=== PATIENT | male | born 1940 | race Caucasian/White ===

== ENCOUNTER 2017-03-16 13:06 | Outpatient (RCR) | payer MEDICARE | END 2017-03-21 16:00 | disposition home or self-care (01) | LOC: WOUNDCARE 13:06 | PROVIDERS: ATTEND Nurse Practitioner | DX: E10.622 Type 1 diabetes mellitus with other skin ulcer (principal); L97.321 Non-pressure chronic ulcer of left ankle limited to breakdown of skin; L97.211 Non-pressure chronic ulcer of right calf limited to breakdown of skin; I48.2 Chronic atrial fibrillation | CPT/HCPCS: 11042; 87070; 87075; 87077; 87186; 87205; 97597 ==

== ENCOUNTER → 2017-03-29 | Day surgery (SDC) | payer MEDICARE ==
[~2017-03-29] VITALS: Ht 172.7 cm; Wt 95.3 kg
[~2017-03-29] MED LIST: AMIO200T50 PO; ATOR80TA76 PO; CARV6.252 PO; CLOP75TA69 PO; CLOPIDOGREL 300 MG (PLAVIX) TABLET PO ONE; DILT180C PO; GABA600T2 PO; HEParin (CATH LAB) 2,000 ML IV ONE; INSU100I29 SQ; INSU100V3 SQ; LISI-552 PO; NS IV 1000 ML 1,000 ML IV SCH; NS IV 1000 ML 1,000 ML ONE; OXYC-201 PO; PANT40TA3 PO; POTA-51 PO; WARF3TAB6 PO
[2017-03-29 12:40] VITALS: BP 171/89
[2017-03-29 12:51] LABS: MEAN PLATELET VOLUME 10.6 FL (7.4-10.4); RED BLOOD COUNT 4.89 10^6/uL (4.35-5.85); RED CELL DISTRIBUTION WIDTH 17.5 % (10.0-14.5); WHITE BLOOD COUNT 8.4 10^3/uL (4.3-11.0)
[2017-03-29 12:54] LABS: INR 2.3 (0.8-1.4); PROTHROMBIN TIME PATIENT 25.2 SEC (12.2-14.7)
[2017-03-29 13:02] LABS: ALANINE AMINOTRANSFERASE 53 U/L (0-55); ALBUMIN 3.6 GM/DL (3.2-4.5); ANION GAP 8 MMOL/L (5-14); ASPARTATE AMINO TRANSFERASE 41 U/L (5-34); BLOOD UREA NITROGEN 19 MG/DL (7-18); BUN/CREATININE RATIO 23; CARBON DIOXIDE 27 MMOL/L (21-32); CHLORIDE 105 MMOL/L (98-107); CREATININE SERUM 0.82 MG/DL (0.60-1.30); GFR ESTIMATED > 60; GLUCOSE 167 MG/DL (70-105); POTASSIUM 3.7 MMOL/L (3.6-5.0); SODIUM 140 MMOL/L (135-145); TOTAL PROTEIN 6.5 GM/DL (6.4-8.2)
== END ==
LOC: CATH 12:05
PROVIDERS: ATTEND Internal Medicine Interventional Cardiology
DX: I73.9 Peripheral vascular disease, unspecified (principal); Z79.899 Other long term (current) drug therapy; Z79.01 Long term (current) use of anticoagulants; Z79.4 Long term (current) use of insulin; Z53.09 Procedure and treatment not carried out because of other contraindication
CPT/HCPCS: 36415; 80053; 85027; 85610; 85730; 87081

== ENCOUNTER → 2017-03-29 | Outpatient (CLI) | payer MEDICARE ==
[~2017-03-29] MED LIST changes: -CLOPIDOGREL 300 MG (PLAVIX) TABLET PO ONE; -HEParin (CATH LAB) 2,000 ML IV ONE; -NS IV 1000 ML 1,000 ML IV SCH; -NS IV 1000 ML 1,000 ML ONE
== END ==
LOC: WOUNDCARE 10:46
PROVIDERS: ATTEND Nurse Practitioner
DX: E11.622 Type 2 diabetes mellitus with other skin ulcer (principal); L97.322 Non-pressure chronic ulcer of left ankle with fat layer exposed; L97.212 Non-pressure chronic ulcer of right calf with fat layer exposed; I70.243 Atherosclerosis of native arteries of left leg with ulceration of ankle; I87.2 Venous insufficiency (chronic) (peripheral); I48.2 Chronic atrial fibrillation
CPT/HCPCS: 11042

== ENCOUNTER 2017-03-31 07:10 | Day surgery (SDC) | payer MEDICARE ==
[2017-03-31] VITALS (11 sets, daily range): BP systolic 122–168; BP diastolic 74–105
[~2017-03-31] VITALS: Ht 172.7 cm; Wt 94.8 kg
[~2017-03-31 07:10] MED LIST changes: -CLOP75TA69 PO
[2017-03-31] MEDS ORDERED: NS IV 1000 ML 1,000 ML ONE (07:11)
[2017-03-31] MEDS ORDERED: HEParin (CATH LAB) 2,000 ML IV ONE (07:11)
[2017-03-31] MEDS: NS IV 1000 ML 1,000 ML IV SCH ×2 (07:39→07:53)
[2017-03-31] MEDS ORDERED: CLOPIDOGREL 75 MG (PLAVIX) TABLET ONE (07:42)
[2017-03-31] MEDS ORDERED: CLOP75TA69 PO (07:52)
[2017-03-31 07:54] LABS: INR 1.7 (0.8-1.4); PROTHROMBIN TIME PATIENT 19.6 SEC (12.2-14.7)
[2017-03-31] MEDS ORDERED: fentaNYL INJECTION 100 MCG/2 ML AMP ONE ×3 (08:07→14:07)
[2017-03-31] MEDS ORDERED: MIDAZOLAM 5 MG/5 ML (VERSED) VIAL ONE (08:07)
[2017-03-31] MEDS ORDERED: diphenhydrAMINE 50 MG/ML INJ (BENADRYL) ONE (08:07)
[2017-03-31] MEDS ORDERED: HEParin 1000 UNIT/ML (10ML VIAL) FOR BOLUS ONE (09:59)
[2017-03-31] MEDS ORDERED: LABETALOL HCL 20 MG/4 ML VIAL ONE (11:02)
[2017-03-31] MEDS ORDERED: MIDAZOLAM 2 MG/2 ML (VERSED) VIAL ONE ×2 (12:56→14:09)
--- NOTE | 2017-03-31 14:30 | Cardiac Procedure Note-CS/ASA ---
Pre-Procedure Note Pre-Op Procedure Note H&P Reviewed The H&P was reviewed, patient examined and no changes noted. Date H&P Reviewed: Mar 31, 2017 Time H&P Reviewed: 09:00 Conscious Sedation Pre-Proced Time Reviewed: 09:00 ASA Class: 3 Airway Mallampati Classification: (te-moak appropriate class) I. II. III, IV Lungs Heart ASA score ASA 1: a normal healthy patient ASA 2: a patient with a mild systemic disease (mid diabetes, controlled hypertension, obesity ASA 3: a patient with a severe systemic disease that limits activity (angina , COPD, prior Myocardial infarction) ASA 4: a patient with an incapacitating disease that is a constant threat to life (CHF, renal failure) ASA 5: a moribund patient not expected to survive 24 hrs. (ruptured aneurysm) ASA 6: a declared brain patient whose organs are being harvested. For emergent operations, add the letter E after the classification Grade 1 Sedation Plan: Analgesia, Amnesia, Plan communicated to team members, Discussed options with patient/fam, Discussed risks with patient/fam Note The patient is an appropriate candidate to undergo the planned procedure, sedation, and anesthesia. The patient immediately re-assessed prior to indication. Karlene LEONARD MD Mar 31, 2017 2:30 pm
--- NOTE | 2017-03-31 14:36 | Cardiology Post Procedure Note ---
Post-Procedure Note Physician (s)/Licensed Home Inspector (s) Physician Karlene LEONARD MD Pre-Procedure Diagnosis Pre-Procedure Diagnosis: critical limb ischemia Post-Procedure Note Procedure Start Date: Mar 31, 2017 Procedure Start Time: 10:00 Name of Procedure: distal abdominal aortogram, bilateral lower extremity, stent to left SFA and popliteal artery, DCB to distal SFA Findings/Procedure Note Left lower extremity: Left SFA - heavily calcified and severe distal disease. Left Popliteal - heavily calcified, occluded. reconstitution of Deep peroneal artery. occluded proximal PT with reconstitution in mid calf. occluded mid AT with reconstitution. WEIGHT CALCULATOR - left popliteal and distal SFA DCB - distal SFA Stent x2 - popliteal and distal SFA Anesthesia Type: Conscious Sedation Estimated blood loss (mL): 30 Contrast Amount: 221 Post-Procedure Diagnosis Post-operative diagnosis: Critical limb ischemia, with stent and drug coated balloon to left distal SFA and popliteal artery. Karlene LEONARD MD Mar 31, 2017 2:36 pm
[2017-03-31] MEDS ORDERED: NS IV 1000 ML 1,000 ML IV SCH (14:37)
[2017-03-31] MEDS ORDERED: PATIENT MAY USE OWN MEDS, ALL PO SCH (14:45)
[2017-03-31] MEDS: morphine INJ 4 MG/ML 1 ML (VIAL/SYRINGE) IVP PRN ×2 (16:25→19:50)
[2017-03-31] MEDS ORDERED: ATROPINE INJECTION 1 MG/10 ML SYR (ABBOTT) ONE (19:06)
[2017-03-31] MEDS ORDERED: ATORVASTATIN 80 MG (LIPITOR) TABLET PO SCH (21:00)
[2017-03-31] MEDS ORDERED: inSUlin DETERMIR 1 UNIT/0.01 ML (LEVEMIR) CHARGE PER UNIT SQ SCH (21:00)
[2017-03-31] MEDS: inSUlin (REGULAR) HUMAN 1 UNIT/0.01 ML (CHARGE PER UNIT) SC SCH (21:24)
[2017-03-31] MEDS: oxyCODONE/APAP 7.5-325 MG (PERCOCET 7.5) TABLET PO PRN (21:37)
[2017-03-31] MEDS: lisINopril 20 MG (ZESTRIL) TAB PO SCH (21:37)
[2017-03-31] MEDS: AMIODARONE 200 MG (CORDARONE) TAB PO SCH (21:37)
[2017-03-31] MEDS: CARVEDILOL 6.25 MG (COREG) TAB PO SCH (21:37)
[2017-03-31] MEDS: GABAPENTIN 600 MG (NEURONTIN) TAB PO SCH (21:37)
[2017-03-31] MEDS: KCL 20 MEQ TAB (K-DUR) PO SCH (21:38)
[2017-04-01] VITALS (13 sets, daily range): BP systolic 111–145; BP diastolic 65–90
[2017-04-01] MEDS ORDERED: HEParin DRIP 25000 UNIT/500ML 500 ML IV SCH ×2 (02:33→02:50)
[2017-04-01 04:02] LABS: BASOPHILS % (AUTO) 0 % (0-10); EOSINOPHILS % (AUTO) 1 % (0-10); LYMPHOCYTES # (AUTO) 0.7 X 10^3 (1.0-4.0); LYMPHOCYTES % (AUTO) 9 % (12-44); MEAN CORPUSCULAR HEMOGLOBIN 25 PG (25-34); MEAN CORPUSCULAR HGB CONC 32 G/DL (32-36); MEAN CORPUSCULAR VOLUME 80 FL (80-99); MONOCYTES # (AUTO) 0.8 X 10^3 (0.0-1.0); MONOCYTES % (AUTO) 9 % (0-12); NEUTROPHILS # (AUTO) 6.4 X 10^3 (1.8-7.8); NEUTROPHILS % (AUTO) 81 % (42-75); PLATELET COUNT 174 10^3/uL (130-400); RED BLOOD COUNT 4.53 10^6/uL (4.35-5.85); RED CELL DISTRIBUTION WIDTH 17.3 % (10.0-14.5)
[2017-04-01 04:26] LABS: ALANINE AMINOTRANSFERASE 47 U/L (0-55); ALBUMIN 3.1 GM/DL (3.2-4.5); ANION GAP 11 MMOL/L (5-14); ASPARTATE AMINO TRANSFERASE 36 U/L (5-34); BILIRUBIN,TOTAL 1.4 MG/DL (0.1-1.0); BLOOD UREA NITROGEN 17 MG/DL (7-18); BUN/CREATININE RATIO 22; CALCIUM 8.6 MG/DL (8.5-10.1); CARBON DIOXIDE 25 MMOL/L (21-32); CHLORIDE 107 MMOL/L (98-107); CREATININE SERUM 0.77 MG/DL (0.60-1.30); GFR ESTIMATED > 60; GLUCOSE 140 MG/DL (70-105); POTASSIUM 3.4 MMOL/L (3.6-5.0); SODIUM 143 MMOL/L (135-145); TOTAL PROTEIN 5.6 GM/DL (6.4-8.2)
[2017-04-01] MEDS ORDERED: MAGNESIUM 1 GM/100 ML IVPB 100 ML IV SCH (06:00)
[2017-04-01] MEDS ORDERED: POTASSIUM CL 10MEQ/50ML IVPB 50 ML IV SCH (06:00)
[2017-04-01] MEDS ORDERED: KCL 20 MEQ TAB (K-DUR) PO SCH (06:00)
[2017-04-01] MEDS: NS IV 1000 ML 1,000 ML IV SCH (06:14)
[2017-04-01] MEDS ORDERED: KCL 20 MEQ TAB (K-DUR) PO ONE (06:15)
[2017-04-01] MEDS: inSUlin (REGULAR) HUMAN 1 UNIT/0.01 ML (CHARGE PER UNIT) SC SCH ×2 (06:41→11:00)
[2017-04-01] MEDS ORDERED: CLOPIDOGREL 75 MG (PLAVIX) TABLET PO SCH (09:00)
[2017-04-01] MEDS ORDERED: DILTIAZEM 180 MG (CARDIZEM CD) CAP PO SCH (09:00)
[2017-04-01] MEDS ORDERED: PANTOPRAZOLE 40 MG (PROTONIX) TAB PO SCH (09:00)
[2017-04-01] MEDS: GABAPENTIN 600 MG (NEURONTIN) TAB PO SCH (09:32)
[2017-04-01] MEDS: KCL 20 MEQ TAB (K-DUR) PO SCH (09:32)
[2017-04-01] MEDS: oxyCODONE/APAP 7.5-325 MG (PERCOCET 7.5) TABLET PO PRN (09:32)
[2017-04-01] MEDS: AMIODARONE 200 MG (CORDARONE) TAB PO SCH (09:33)
[2017-04-01] MEDS: lisINopril 20 MG (ZESTRIL) TAB PO SCH (09:33)
[2017-04-01] MEDS: CARVEDILOL 6.25 MG (COREG) TAB PO SCH (09:33)
--- NOTE | 2017-04-01 12:03 | Clinic Account Progress/Dx ---
Clinic Account Progress/Dx DIAGNOSIS: Date Seen by Provider: Apr 01, 2017 Time Seen by Provider: 12:03 Diagnosis critical limb ischemia Nonhealing foot ulcer Peripheral arterial disease Hypertension Hyperlipidemia Chronic atrial fibrillation LEXX BAZAN MD Apr 01, 2017 12:03
--- NOTE | 2017-04-01 12:03 | Cardiology Progress Note ---
Subjective Date Seen by Provider: Apr 01, 2017 Time Seen by Provider: 12:01 Subjective/Events-last exam patient is laying down in bed, feeling better in his leg, still having dressing over the ulcers in his feet. Review of Systems General: No Chills, No Night Sweats, No Fatigue, No Malaise, No Appetite, No Other HEENT: No Head Aches, No Visual Changes, No Eye Pain, No Ear Pain, No Dysphasia , No Sinus Congestion, No Post Nasal Drip, No Sore Throat, No Other Pulmonary: No Dyspnea, No Cough, No Pleuritic Chest Pain, No Other Cardiovascular: No: Chest Pain, Edema, Lt Headedness, Orthopnea, Other, Palpitations, Paroxysmal Noc. Dyspnea Objective-Cardiology Exam Last Set of Vital Signs Vital Signs 03/31/17 04/01/17 04/01/17 23:00 00:00 08:00 Temp 98.3 Pulse 71 Resp 16 B/P (MAP) 122/65 Pulse Ox 95 O2 Delivery Room Air O2 Flow Rate 5.00 Capillary Refill : Less Than 3 Seconds I&O Intake and Output 04/01/17 00:00 Intake Total 240 ml Output Total 775 ml Balance -535 ml Intake Oral 240 ml Output Urine Total 775 ml # Urine Diapers 2 General: Alert, Oriented X3, Cooperative HEENT: Atraumatic, PERRLA Neck: Supple, No JVD, No Thyromegaly Lungs: Clear to Auscultation, Normal Air Movement Heart: Regular Rate, Normal S1, Normal S2, No Murmurs Abdomen: Normal Bowel Sounds, Soft, No Tenderness, No Hepatosplenomegaly, No Masses Extremities: Other (diminished pulse with ulcers on the feet, dressing, unable to palpate dorsalis pedis pulse) Neuro: Normal Speech, Normal Tone Psych/Mental Status: Mental Status NL Results Lab Laboratory Tests 04/01/17 03:39 A/P-Cardiology Admission Diagnosis critical limb ischemia Nonhealing foot ulcer Peripheral arterial disease Hypertension Hyperlipidemia Chronic atrial fibrillation Assessment/Plan Critical limb ischemia status post complex intervention done by Dr. Bruno, continue on current medication and discharged homechronic atrial fibrillation, maintained on Cardizem and beta blockers and Coumadin. Hypertension, continue current medication monitor Hyperlipidemia, continue on statin Nonhealing foot ulcer. Managed by Dr. Spencer Peripheral arterial disease LEXX BAZAN MD Apr 01, 2017 12:03
[2017-04-01] MEDS ORDERED: OXYC-201 PO (12:05)
--- NOTE | 2017-04-04 08:46 | CARDIAC CATHETERIZATION ---
PROCEDURE PHYSICIAN: SILVESTRE LEONARD DATE OF PROCEDURE: 03/31/2017 PERIPHERAL ANGIOGRAPHY AND INTERVENTION REPORT: REFERRING PHYSICIAN: Dr. Martinez/Dr. Steward. INDICATION: Critical limb ischemia. PREOPERATIVE DIAGNOSIS: Bilateral critical limb ischemia. POSTOPERATIVE DIAGNOSIS: 1. Critical limb ischemia. 2. Stent and drug coated balloon to left distal SFA and popliteal artery. HISTORY: Mr. Lopez is a 76-year-old gentleman who was referred by the wound clinic. He presents with nonhealing ulcers on bilateral lower extremities as well as resting discomfort. NEEL showed severe bilateral abnormality. According to the patient, his left lower extremity was slightly worse than the right lower extremity; therefore, we decided to gain access via the right femoral artery and after diagnostic angiography, proceed with intervention to the left lower extremity. Consent was taken. PROCEDURE PERFORMED: 1. Distal abdominal aortogram with bilateral lower extremity runoff. 2. Selective angiogram of the left lower extremity including the external iliac artery, common femoral artery, superficial femoral artery, popliteal artery and runoff below the knee. 3. Selective angiography, right lower extremity via the sheath. 4. RADIOTELEPHONE OPERATOR/balloon of the left popliteal artery. 5. RADIOTELEPHONE OPERATOR/stent left distal SFA. SPECIMENS: None. ANTICOAGULATION: Heparin. COMPLICATIONS: None. ESTIMATED BLOOD LOSS: 30 mL CONTRAST: 221 mL of Omnipaque. FLUOROSCOPY TIME: 86.2 minutes. FLUOROSCOPY DOSE: 1116 mGy PROCEDURE DETAILS: The patient was brought to the [facility] after informed consent was taken. He was draped and prepped in the usual sterile fashion. Access was gained in the right femoral artery with a 6-Afghan sheath. Diagnostic angiography was performed with a pigtail catheter. FINDINGS: 1. Right lower extremity: There is mild distal abdominal aortic disease. Very mild disease in the right common iliac artery. Patent but very tortuous external iliac artery. Mild disease in the proximal superficial femoral artery. Mild disease in the midsegment. Severe calcified disease in the distal SFA and the popliteal artery. Total occlusion of the right popliteal artery with faint reconstitution just distally. There is a faint reconstitution of the deep peroneal artery, which is occluded in its proximal segment. The deep peroneal artery however supplies the foot. Diffusely diseased and multiple occlusive segments of the posterior tibial artery. Proximal segment of the anterior tibial artery is occluded as well with reconstitution in the midsegment and then supplies to the foot. Therefore on the right lower extremity, there is 2 vessel runoff to the foot, the posterior tibial is occluded. Both the deep peroneal artery and the anterior tibial artery have severe proximal occlusion. 2. Left lower extremity: Mild common iliac artery disease tortuous vessels, no significant external iliac disease. Calcified mild diffuse disease in the proximal SFA and mid SFA. Heavily calcified distal SFA and popliteal artery with severe disease in the distal SFA. Occluded popliteal artery just after the Angel canal with faint reconstitution in the tibial peroneal artery. The posterior tibial artery reconstitutes in the mid calf with occlusion in the entire proximal and midsegment. The deep peroneal artery reconstitutes from the tibial peroneal trunk and supplies the foot. The anterior tibial artery also has severe occlusive disease and was not visible at this point in time. RECOMMENDATION: Intervention to the distal SFA and left distal SFA and popliteal artery is recommended. INTERVENTION DETAILS: We first crossed over with the pigtail catheter and a Storq wire into the left common external iliac artery. The wire was placed there and the pigtail catheter was taken out. Then we took a long 6-Afghan by 55cm flexor sheath and with difficulty, put it in the distal left common iliac artery. We were not able to get the sheath any further due to significant tortuosity in both the right and left common iliac artery and hostile bifurcation. We then took a 100 cm straight tapered glide catheter with a 0.018 connect flex wire, we were able to get into the distal vessel. We then took the taper glide catheter out and put a mini support catheter. Through the long sheath, we did a selective angiogram of the left lower extremity. This showed also severe calcification in the entire length of the common femoral and superficial femoral artery and significant disease in the distal SFA and occlusion of the popliteal artery was noted. Due to significant tortuosity we were not able to manipulate guidewire as well as guidewire; therefore, we upgraded to a 7-Afghan x 65 Terumo destination sheath but still with no significant improvement in our procedure. Therefore, we took the Terumo destination out put a short 7-Afghan sheath. Using the 7-Afghan sheath, selective angiography of the right lower extremity was performed, which showed severely diffuse calcification in the mid and distal SFA. Severe disease was noted in the right distal SFA and occlusion of the popliteal artery, diffuse disease in the DP. At this point in time, we decided to get antegrade access in the left artery with a 6-Afghan sheath. We put in a 6-Afghan x 11 sheath in the right femoral artery. We then took the mini support catheter 0.014 wire and were able to cross the occlusion into the tibioperoneal trunk. We then took an Huxford 14, 1.5 x 20 x 150 balloon and did numerous balloon dilatations in the popliteal artery with some recanalization but poor distal flow. We then exchanged the short 6-Afghan sheath in the left femoral artery with a 6-Afghan x 23 long sheath. We then used the mini support catheter and were able to cross with a 0.014 wire. We used at least 3 0.018 connect flex wires as well during this long procedure. Once we were able to cross and recannulize with the 014 command wire in the distal peroneal artery, we then took an Huxford 3 x 60 x 150 balloon and did a balloon inflations in the popliteal and distal superficial femoral artery with some improvement in flow. We then took an Huxford 18, 5.5 x 200 x 150 balloon and did balloon inflations in the popliteal and distal superficial artery. These inflations were performed for 60 to 90 seconds in nominal and super nominal pressures. We then took Supera 5.5 x 120 mm stent and placed it in the distal popliteal artery until the proximal popliteal artery. This was done because nonflow limiting dissection was noted. We then used a Lutonix 6 x 150 x 130 drug coated balloon and did an inflation in the distal left SFA with good results. We then took a Supera 6.5 x 150 stent and placed it in the proximal popliteal artery and the distal SFA with good results. Therefore recanalization and reasonable flow was noted in the SFA and popliteal artery; however, still less than optimum flow was noted in the vessels below the knee with mild nonflow limiting dissection. However, there was still flow in the deep peroneal artery as well as the anterior tibial artery. This was not seen before we started. Therefore, there was some improvement in flow during the procedure. At this point in time, we decided to stop. The wire was taken out and angiogram showed good flow in the SFA and popliteal artery; however, there was still less than optimum flow below the knee; however, there was still flow in the deep peroneal artery as well as the anterior tibial artery. The posterior tibia was occluded with some reconstitution in the midcalf. The patient tolerated the procedure well and did not have any complication. IMPRESSION/CONCLUSION: 1. The patient will be admitted to the ICU overnight. The patient will be started on all home medication except Coumadin which will be started tomorrow. The sheaths will be pulled in the ICU once ACT is below 150. The patient will be started on aspirin and Plavix. 2. CBC and BMP will be done in the morning. Hopefully the patient will be discharged tomorrow. Job ID: [id number] Dictated Date: 03/31/2017 15:27:49 Power Shear Operator Date: 04/04/2017 08:02:10 / clarisse SHORT
== END 2017-04-01 13:00 | disposition home or self-care (01) ==
LOC: CATH 07:10 → ICU 14:50 → CATH 04-01 13:00
PROVIDERS: ATTEND Internal Medicine Interventional Cardiology
DX: I70.213 Atherosclerosis of native arteries of extremities with intermittent claudication, bilateral legs (principal); I70.92 Chronic total occlusion of artery of the extremities; E11.621 Type 2 diabetes mellitus with foot ulcer; I48.2 Chronic atrial fibrillation; I10 Essential (primary) hypertension; L97.909 Non-pressure chronic ulcer of unspecified part of unspecified lower leg with unspecified severity; E78.5 Hyperlipidemia, unspecified; Z79.4 Long term (current) use of insulin; Z79.899 Other long term (current) drug therapy; Z79.01 Long term (current) use of anticoagulants
CPT/HCPCS: 36247; 36415; 37226; 75630; 75716; 75774; 80053; 82962; 85025; 85347; 85610; 85730

== ENCOUNTER 2017-04-10 20:25 | Emergency (ER) | payer MEDICARE ==
[~2017-04-10] VITALS: Ht 172.7 cm; Wt 95.3 kg
[~2017-04-10 20:25] MED LIST changes: +CLOP75TA69 PO
[2017-04-10] MEDS ORDERED: fentaNYL INJECTION 100 MCG/2 ML AMP IVP STA ×2 (20:39→23:37)
[2017-04-10 20:48] LABS: BASOPHILS # (AUTO) 0.1 10^3/uL (0.0-0.1); BASOPHILS % (AUTO) 1 % (0-10); EOSINOPHILS # (AUTO) 0.1 10^3/uL (0.0-0.3); EOSINOPHILS % (AUTO) 1 % (0-10); LYMPHOCYTES % (AUTO) 10 % (12-44); MEAN CORPUSCULAR HEMOGLOBIN 26 PG (25-34); MEAN CORPUSCULAR HGB CONC 32 G/DL (32-36); MEAN CORPUSCULAR VOLUME 81 FL (80-99); MEAN PLATELET VOLUME 9.4 FL (7.4-10.4); MONOCYTES # (AUTO) 0.9 X 10^3 (0.0-1.0); MONOCYTES % (AUTO) 9 % (0-12); NEUTROPHILS # (AUTO) 8.2 X 10^3 (1.8-7.8); NEUTROPHILS % (AUTO) 80 % (42-75); PLATELET COUNT 348 10^3/uL (130-400); RED BLOOD COUNT 4.86 10^6/uL (4.35-5.85); WHITE BLOOD COUNT 10.4 10^3/uL (4.3-11.0)
--- NOTE | 2017-04-10 20:48 | ED Lower Extremity ---
General Stated Complaint: LEG PAIN Source: patient, spouse Exam Limitations: no limitations History of Present Illness Time seen by provider: 20:34 Initial Comments Patient presents to ER by private conveyance with his with chief complaint of left lower leg pain started approximately one day ago progressively getting worse and not responding to Percocet. Last dose Percocet approximately 2 hours ago. He underwent a stent for peripheral arterial disease in that left leg by Dr. Bruno 03/31/17 and the warfarin was stopped at that time corn the patient and not restarted. He does have a history of fibrillation. He was put on Plavix and aspirin however. He has had a triple bypass years ago and that's when he was found to have atrial fibrillation was started on the warfarin. He is feeling pain in the back of his left calf and cannot straighten his leg out. Patient has a history of diabetes and has a diabetic ulcer on the medial malleoli are surface of his left leg that is under care of local wound care team. Allergies and Home Medications Allergies Coded Allergies: No Known Drug Allergies (Unverified , 03/29/17) Home Medications Atorvastatin Calcium 80 Mg Tablet, 80 MG PO HS, (Reported) Carvedilol 6.25 Mg Tablet, 6.25 MG PO BID, (Reported) Clopidogrel Bisulfate 75 Mg Tablet, 75 MG PO DAILY, (Reported) Diltiazem HCl 180 Mg Cap.er.24h, 180 MG PO DAILY, (Reported) Gabapentin 600 Mg Tablet, 600 MG PO TID, (Reported) Insulin Detemir 100 Unit/1 Ml Insuln.pen, 50 UNIT SQ HS, (Reported) Insulin Regular, Human 1,000 Units/10 Ml Soln, SQ SLIDING/SCALE, (Reported) Lisinopril 20 Mg Tablet, 20 MG PO BID, (Reported) Oxycodone HCl/Acetaminophen 1 Each Tablet, 1 TAB PO Q4H PRN for PAIN-MODERATE, # 30 Ref 0 Prescribed by: LEXX BAZAN on 04/01/17 1205 Pantoprazole Sodium 40 Mg Tablet.dr, 40 MG PO DAILY, (Reported) Potassium Chloride 20 Meq Tablet.er, 20 MEQ PO TID, (Reported) Warfarin Sodium 3 Mg Tablet, 3 MG PO Th@HS, (Reported) Warfarin Sodium 3 Mg Tablet, 1.5 MG PO SuMoTuWeFrSa@HS, (Reported) TAKES 1/2 OF A (3 MG) TABLET Constitutional: No chills, No diaphoresis, No fever EENTM: No ear pain, No eye pain Respiratory: No cough, No dyspnea on exertion, No hemoptysis, No phlegm, No short of breath, No wheezing Cardiovascular: see HPI, No chest pain, No edema, Hx of Intervention, No palpitations, vascular heart diseas Gastrointestinal: No abdominal pain, No constipation, No diarrhea, No nausea, No vomiting Genitourinary: No discharge, No dysuria Musculoskeletal: No joint pain, No joint swelling, No muscle pain Skin: No pruritus, No rash Psychiatric/Neurological: Denies Headache, Denies Numbness, Denies Paresthesia Past Qilerfl-Inuorm-Zhsbke Hx Patient Social History Alcohol Use: Denies Use Recreational Drug Use: No Smoking Status: Former Smoker Type Used: Cigars Recent Foreign Travel: No Contact w/Someone Who Travel: No Immunizations Up To Date Date of Pneumonia Vaccine: May 29, 2016 Surgeries HX Surgeries: Yes Respiratory Hx Respiratory Disorders: No Cardiovascular Hx Cardiac Disorders: Yes Genitourinary Hx Genitourinary Disorders: No Gastrointestinal Hx Gastrointestinal Disorders: Yes (colon cancer ) Cancer Cancer: Colon Physical Exam Vital Signs Vital Sign - Last 12Hours 04/10/17 20:31 Temp 98.1 Pulse 95 Resp 20 B/P (MAP) 107/76 Pulse Ox 97 O2 Delivery Room Air Capillary Refill : General Appearance: WD/WN, mild distress HEENT: PERRL/EOMI, pharynx normal Neck: supple, normal inspection Cardiovascular: no edema, no murmur, irregularly irregular, other (legs are warm from the calf down but dusky colored with barely perceptible dorsal pedal and posterior tibial pulses.) Respiratory: lungs clear, normal breath sounds, no respiratory distress Gastrointestinal: non tender, soft Legs: bilateral leg other (left side has tenderness in the body to palpation on the calf posteriorly. Homans sign positive.) Feet: bilateral foot other (healing wound left medial malleoli without erythema , drainage and a small half centimeter diameter eschar.) Neurologic/Tendon: normal sensation, normal motor functions, normal tendon functions, responds to pain Neurologic/Psychiatric: no motor/sensory deficits, alert, oriented x 3 Skin: warm/dry, other (calves and feet are discolored dusky purple) Progress/Results/Core Measures Results/Orders Lab Results Laboratory Tests Test 04/10/17 20:40 Range/Units White Blood Count 10.4 4.3-11.0 10^3/uL Red Blood Count 4.86 4.35-5.85 10^6/uL Hemoglobin 12.5 L 13.3-17.7 G/DL Hematocrit 39 L 40-54 % Mean Corpuscular Volume 81 80-99 FL Mean Corpuscular Hemoglobin 26 25-34 PG Mean Corpuscular Hemoglobin Concent 32 32-36 G/DL Red Cell Distribution Width 17.0 H 10.0-14.5 % Platelet Count 348 130-400 10^3/uL Mean Platelet Volume 9.4 7.4-10.4 FL Neutrophils (%) (Auto) 80 H 42-75 % Lymphocytes (%) (Auto) 10 L 12-44 % Monocytes (%) (Auto) 9 0-12 % Eosinophils (%) (Auto) 1 0-10 % Basophils (%) (Auto) 1 0-10 % Neutrophils # (Auto) 8.2 H 1.8-7.8 X 10^3 Lymphocytes # (Auto) 1.0 1.0-4.0 X 10^3 Monocytes # (Auto) 0.9 0.0-1.0 X 10^3 Eosinophils # (Auto) 0.1 0.0-0.3 10^3/uL Basophils # (Auto) 0.1 0.0-0.1 10^3/uL Prothrombin Time 13.0 12.2-14.7 SEC INR Comment 1.0 0.8-1.4 Activated Partial Thromboplast Time 26 24-35 SEC Sodium Level 140 135-145 MMOL/L Potassium Level 3.7 3.6-5.0 MMOL/L Chloride Level 103 98-107 MMOL/L Carbon Dioxide Level 24 21-32 MMOL/L Anion Gap 13 5-14 MMOL/L Blood Urea Nitrogen 21 H 7-18 MG/DL Creatinine 0.96 0.60-1.30 MG/DL Estimat Glomerular Filtration Rate > 60 BUN/Creatinine Ratio 22 Glucose Level 110 H 70-105 MG/DL Calcium Level 9.0 8.5-10.1 MG/DL Magnesium Level 1.6 L 1.8-2.4 MG/DL Total Bilirubin 1.2 H 0.1-1.0 MG/DL Aspartate Amino Transf (AST/SGOT) 80 H 5-34 U/L Alanine Aminotransferase (ALT/SGPT) 50 0-55 U/L Alkaline Phosphatase 107 40-136 U/L Total Protein 6.5 6.4-8.2 GM/DL Albumin 3.4 3.2-4.5 GM/DL My Orders Orders - ZOYA BATISTA Cbc With Automated Diff (04/10/17 20:39) Comprehensive Metabolic Panel (04/10/17 20:39) Magnesium (04/10/17 20:39) Protime With Inr (04/10/17 20:39) Partial Thromboplastin Time (04/10/17 20:39) Us Venous Lower Ext Lt (04/10/17 20:39) Saline Lock/Iv-Start (04/10/17 20:39) Monitor-Rhythm Ecg Trace Only (04/10/17 20:39) Fentanyl Injection (Sublimaze Injection (04/10/17 20:39) Magnesium Oxide Tablet (Mag Ox Tablet) (04/10/17 21:30) Ct Angio Ext Lower Left W (04/10/17 21:38) Iohexol Injection (Omnipaque 350 Mg/Ml 1 (04/10/17 22:45) Ns (Ivpb) (Sodium Chloride 0.9% Ivpb Bag (04/10/17 22:45) Heparin Drip 61174 Unit/500ml (Heparin (04/10/17 23:25) Heparin (Bolus Per Protocol) (Heparin (B (04/10/17 23:30) Fentanyl Injection (Sublimaze Injection (04/10/17 23:30) Medications Given in ED Current Medications Medications Dose Ordered Sig/Donell Route Start Time Stop Time Status Last Admin Dose Admin Iohexol 150 ml ONCE ONCE IV 04/10/17 22:45 04/10/17 22:46 DC 04/10/17 22:45 125 ML Magnesium Oxide 400 mg ONCE ONCE PO 04/10/17 21:30 04/10/17 21:31 DC 04/10/17 21:57 400 MG Sodium Chloride 100 ml ONCE ONCE IV 04/10/17 22:45 04/10/17 22:46 DC 04/10/17 22:46 80 ML Vital Signs/I&O Vital Sign - Last 12Hours 04/10/17 20:31 Temp 98.1 Pulse 95 Resp 20 B/P (MAP) 107/76 Pulse Ox 97 O2 Delivery Room Air Progress Note #1: Time: 20:52 Progress Note The site being diabetic and having a recent wound on his left leg this does not appear to be cellulitis. With his recent history of intervention for peripheral artery disease a clot is possible in the deep venous system. We'll get an ultrasound to look for this. He does appear to have barely perceptible pulses and his feet are warm so is not likely this is ischemic leg however if no clot is found in the venous system then we may have gameroom technician check the flow of his arteries the same time. He does not give a good reason why he would be discontinued on the warfarin despite being with atrial fibrillation. This will need follow-up. Progress Note #2: Time: 21:23 Progress Note a review of prior records demonstrates the catheterization of his left lower limb for ischemia with 2 stents placed. The intention was to restart Coumadin the day following the procedure. Progress Note #3: Time: 23:29 Progress Note Heparin drip is been initiated with a bolus. In the past he has been seen by a cardiothoracic surgeon at [facility] in [place] so he'll be reasonable to try calling there first for transfer. Diagnostic Imaging Diagonstic Imaging: Ultrasound Plain Films/CT/US/NM/MRI: leg (left) Comments NAME: MIKALA ROONEY MED REC#: [id number] PHYSICIAN: ZOYA BATISTA MD CC: GEMA VILLAFUERTE; ZOYA BATISTA Page 1 of 1 RADIOLOGY REPORT VIA [place], [place] CC: GEMA VILLAFUERTE; ZOYA BATISTA Page 1 of 1 RADIOLOGY REPORT NAME: MIKALA ROONEY MED REC#: [id number] PT STATUS: REG ER : 1940 PHYSICIAN: ZOYA BATISTA MD ADMIT DATE: 04/10/17/ER Signed Date of Exam: 04/10/17 US VENOUS LOWER EXT LT PROCEDURE: US left lower extremity venous. TECHNIQUE: Multiple real-time grayscale images were obtained over the left lower extremity in various projections. Additional duplex Doppler and color Doppler images were also obtained. INDICATION: Left leg pain. FINDINGS: Veins in the left leg were compressible and had normal spontaneous and augmented flow. IMPRESSION: Negative venous Doppler of the left leg. Dictated by: Dictated on workstation # [id number] Dict: 04/10/172134 Trans: 04/10/172137 Interpreted by: GEMA VILLAFUERTE Electronically signed by: GEMA VILLAFUERTE 04/10/172137 Reviewed: Reviewed by Me Diagonstic Imaging: CT (angio) Plain Films/CT/US/NM/MRI: leg (left) Comments Extensive atherosclerotic calcified and noncalcified plaque in the level, and iliac bifurcation throughout bilateral lower extremities. 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 There is reconstitution distally be a small collaterals. Diffuse bilateral casting calcifications. Incidentally there is a left hip arthroplasty without evidence of hardware complication. Bilateral fat containing inguinal hernias. Reviewed: Reviewed Night Hawk Study, Reviewed by Me Consults Consults : Consulting Physician: MICA PISANO MD FACP FAC CCDS Consults Notes paged 2130 Discussed the case and recent intervention. He recommends getting a CT angios of left lower extremity. We'll call him back with results. 2320: Discussed results of the CTA with the junior media buyer and he recommends that we do not have vascular surgery and the patient will need transferred somewhere that has that capability. Departure Communication Time/Spoke to Admitting Phy: 23:39 Communication CORNELIUS Fleming and [facility]; he is okay with heparinization. Wants us to Doppler the pulses and send the patient so that they can get arterial duplex done at [facility]. Then they'll decide whether this is needs acutely treated tonight or can be set up for elective revascularization. Impression Impression: Primary Impression: Femoral artery occlusion, left Disposition: XF SHT-TRM HOSP Condition: Stable Transfer Transfer Notes 2330: [facility] Transfer Line: [facility] [employer]. [facility] Vacular Surgeon. Transfer Facility: [facility] NIRMALA Grimes Method of Transfer: EMS Departure-Patient Inst. Referrals: NO,LOCAL PHYSICIAN (PCP) Primary Care Physician MASON JOSE (Family) Primary Care Physician Copy Copies To 1: Karlene BRUNO MD, TITUS J Apr 10, 2017 20:48
[2017-04-10 21:07] LABS: ALANINE AMINOTRANSFERASE 50 U/L (0-55); ALBUMIN 3.4 GM/DL (3.2-4.5); ANION GAP 13 MMOL/L (5-14); ASPARTATE AMINO TRANSFERASE 80 U/L (5-34); BILIRUBIN,TOTAL 1.2 MG/DL (0.1-1.0); BLOOD UREA NITROGEN 21 MG/DL (7-18); BUN/CREATININE RATIO 22; CARBON DIOXIDE 24 MMOL/L (21-32); CHLORIDE 103 MMOL/L (98-107); CREATININE SERUM 0.96 MG/DL (0.60-1.30); GFR ESTIMATED > 60; GLUCOSE 110 MG/DL (70-105); MAGNESIUM 1.6 MG/DL (1.8-2.4); POTASSIUM 3.7 MMOL/L (3.6-5.0); SODIUM 140 MMOL/L (135-145); TOTAL PROTEIN 6.5 GM/DL (6.4-8.2)
[2017-04-10] MEDS ORDERED: MAGNESIUM OXIDE (MAG-OX)400 MG TAB PO ONE (21:30)
--- NOTE | 2017-04-10 21:37 | Diagnostic Imaging Report ---
PROCEDURE: US left lower extremity venous. TECHNIQUE: Multiple real-time grayscale images were obtained over the left lower extremity in various projections. Additional duplex Doppler and color Doppler images were also obtained. INDICATION: Left leg pain. FINDINGS: Veins in the left leg were compressible and had normal spontaneous and augmented flow. IMPRESSION: Negative venous Doppler of the left leg. Dictated by: Dictated on workstation # [id number]
[2017-04-10] MEDS ORDERED: NS 100 ML (IVPB) BAG IV ONE (22:45)
[2017-04-10] MEDS ORDERED: IOHEXOL 350 MG/ML 150 ML (OMNIPAQUE 350) VIAL IV ONE (22:45)
[2017-04-10] MEDS ORDERED: HEParin DRIP 25000 UNIT/500ML 500 ML IV ONE (23:25)
[2017-04-10] MEDS ORDERED: HEParin 1000 UNIT/ML (10ML VIAL) FOR BOLUS IV ONE (23:30)
[2017-04-10] MEDS ORDERED: fentaNYL INJECTION 100 MCG/2 ML AMP ONE (23:30)
[2017-04-11 01:00] VITALS: BP 178/98
--- NOTE | 2017-04-11 08:20 | Diagnostic Imaging Report ---
CTA of the left lower extremity. INDICATION: Diminished blood flow to the left lower extremity, leg pain. Contiguous axial sections were taken from the low pelvis through the left lower extremity following administration of intravenous contrast. Sagittal and coronal reconstructed images were also performed. There are no prior studies available for comparison. This study is less than optimal as the distal aorta was not included on the exam. There is extensive atherosclerotic plaque throughout the left common iliac artery, but there is no sign of a hemodynamically significant stenosis of this vessel. There is only mild amount of plaque in the external iliac artery; however, there is dense atherosclerotic plaque involving the junction of the left external iliac artery and the common femoral artery. There also appears to be a high-grade 70 to 80 percent stenosis in this region. Furthermore there is also atherosclerotic plaque throughout the superficial femoral artery. There are multiple levels of stenoses of varying degrees throughout the superficial femoral artery. In addition, there is occlusion of the superficial femoral artery in its midportion. There is reconstitution of blood flow to the trifurcation arteries via collaterals; but the trifurcation arteries are quite small, and there does seem to be severely diminished arterial blood flow to the lower extremity. There is no pelvic mass or free fluid collection noted. The urinary bladder and prostate gland are grossly unremarkable. There are small fat-containing inguinal hernias bilaterally. There has also been a total hip arthroplasty procedure on the left. IMPRESSION: There is extensive atherosclerotic disease throughout the arterial system to the left lower extremity. There is occlusion of the superficial femoral artery in its midportion with reconstitution of blood flow to the lower extremity; however, the collateral vessels to the trifurcation arteries are small. The trifurcation arteries themselves are also diminutive, and there is diminished blood flow to the left lower extremity. Dictated by: Dictated on workstation # [id number]
== END 2017-04-11 01:00 | disposition short-term general hospital (02) ==
LOC: EDUNIT# 20:25 → ER 20:28
DX: I74.3 Embolism and thrombosis of arteries of the lower extremities (principal); E11.621 Type 2 diabetes mellitus with foot ulcer; L97.909 Non-pressure chronic ulcer of unspecified part of unspecified lower leg with unspecified severity; Z87.891 Personal history of nicotine dependence; Z85.038 Personal history of other malignant neoplasm of large intestine; Z79.4 Long term (current) use of insulin; Z79.01 Long term (current) use of anticoagulants; Z95.820 Peripheral vascular angioplasty status with implants and grafts; Z79.82 Long term (current) use of aspirin
CPT/HCPCS: 36415; 73706; 80053; 83735; 85025; 85610; 85730; 96365; 96375; 96376